=== PATIENT | male | born 1985 | race Hispanic/Latino ===

== ENCOUNTER 2018-04-26 22:19 | Emergency (ER) | payer SELFPAY ==
[2018-04-26 23:11] LABS: Absolute Lymphocytes (CBC) 1.8 K/uL (0.7-4.9); Absolute Monocytes 0.6 K/uL (0.1-1.3); Absolute Neutrophil 9.1 K/uL (1.8-8.0); Basophils % 0.2 % (0-1.3); Eosinophils % 0.2 % (0-4.4); Hematocrit 43.1 % (39.6-49.0); Lymphocytes % 15.5 % (15.3-44.8); Monocytes % 4.9 % (3.3-12.3); RBC Red Blood Cell Count 4.61 M/uL (4.33-5.43)
[2018-04-26 23:21] LABS: ALT/SGPT 19 U/L (12-78); AST/SGOT 14 U/L (15-37); Albumin 4.3 g/dL (3.4-5.0); Alkaline Phosphatase 76 U/L (45-117); BUN Blood Urea Nitrogen 14 mg/dL (7-18); Bicarbonate 28 mmol/L (21-32); Bilirubin Direct 0.1 mg/dL (0-0.2); Bilirubin Total 0.3 mg/dL (0.2-1.0); Glucose Level 121 mg/dL (74-106); Lipase 66 U/L (73-393); Potassium 3.4 mmol/L (3.5-5.1); Protein, Total 7.9 g/dL (6.4-8.2); Sodium Level 142 mmol/L (136-145)
[2018-04-26] MEDS ORDERED: FAMOTIDINE 20 MG/2 ML VIAL IV ONE (23:30)
[2018-04-26] MEDS ORDERED: MORPHINE 2 MG/ML SYR ONE (23:30)
[2018-04-26] MEDS ORDERED: NA CHLORIDE 0.9% 1,000 ML ONE (23:30)
[2018-04-26] MEDS ORDERED: ONDANSETRON 4 MG/2 ML VIAL ONE (23:30)
[2018-04-27] MEDS ORDERED: MORPHINE 2 MG/ML SYR ONE (00:23)
--- NOTE | 2018-04-27 02:05 | ER ---
Nurse's Notes [facility] Name: Allan Hudson Age: 32 yrs Sex: Male : 1985 Arrival Date: 04/26/2018 Time: 22:21 Bed 2 Private MD: Diagnosis: Nausea and vomiting;Diarrhea, unspecified Presentation: 04/26 22:25 Presenting complaint: EMS states: Called for patient having severe nausea, vomiting, lp1 diarrhea immediately after eating [employer]; Vomited x 3, states feeling numbness to left hand and arm; EMS states HR of 36 on arrival, given Atropine, HR to 60; Per EMS, patient diaphoretic; On arrival to ER, patient complaint of feeling cold, thrashing in bed related to abdominal pain. 22:30 Transition of care: patient was not received from another setting of care. Onset of lp1 symptoms was April 26, 2018 at 21:00. Risk Assessment: Do you want to hurt yourself or someone else? Patient reports no desire to harm self or others. Initial Sepsis Screen: Does the patient meet any 2 criteria? No. Patient's initial sepsis screen is negative. Does the patient have a suspected source of infection? No. Patient's initial sepsis screen is negative. Care prior to arrival: Medication(s) given: Normal saline infusion, 500 mL, 0.3 Atropine IV IV initiated. 18 GA, in the left antecubital area, Glucose check: 103. 22:30 Method Of Arrival: EMS: [facility] 1 22:30 Acuity: ANMOL 2 lp1 Historical: - Allergies: 22:36 Bactrim; lp1 - Home Meds: 22:36 None [Active]; lp1 - PMHx: 22:36 Asthma; lp1 - PSHx: 22:36 None; lp1 - Immunization history:: Adult Immunizations unknown. - Ebola Screening: : No symptoms or risks identified at this time. Screenin:36 Abuse screen: Denies threats or abuse. Denies injuries from another. Nutritional lp1 screening: No deficits noted. Tuberculosis screening: No symptoms or risk factors identified. Fall Risk Total Leggett Fall Scale indicates High Risk Score (45 or more points). Fall prevention measures have been instituted. Side Rails Up X 2 As available patient and family educated on Fall Prevention Program and Strategies. Assessment: 22:40 General: Appears in no apparent distress. uncomfortable, slender, Behavior is aa1 cooperative, appropriate for age, restless. Pain: Complains of pain in abdomen Pain currently is 10 out of 10 on a pain scale. Pain began suddenly. Pain: Is continuous. Neuro: Level of Consciousness is awake, alert, obeys commands, Oriented to person, place, time, situation, Moves all extremities. Full function Speech is normal. Cardiovascular: Denies chest pain, lightheadedness, palpitations, shortness of breath, Heart tones S1 S2 present Rhythm is regular. Respiratory: Airway is patent Respiratory effort is even, unlabored, Respiratory pattern is regular, symmetrical. GI: Abdomen is flat, Abd is soft X 4 quads Reports lower abdominal pain, upper abdominal pain, nausea, vomiting. : No signs and/or symptoms were reported regarding the genitourinary system. EENT: No signs and/or symptoms were reported regarding the EENT system. Derm: Skin is intact, is healthy with good turgor, Skin is pink, warm \T\ dry. Musculoskeletal: Circulation, motion, and sensation intact. Capillary refill < 3 seconds. 23:59 Reassessment: Patient appears in no apparent distress at this time. Patient and/or aa1 family updated on plan of care and expected duration. Pain level reassessed. Patient is alert, oriented x 3, equal unlabored respirations, skin warm/dry/pink. Awaiting CT scan. 04/27 00:10 Reassessment: Pt reports pain still 10/10; provider notified. aa1 01:54 Reassessment: Patient appears in no apparent distress at this time. Patient and/or aa1 family updated on plan of care and expected duration. Pain level reassessed. Patient is alert, oriented x 3, equal unlabored respirations, skin warm/dry/pink. Pt reports pain improved after second dose of medication. Awaiting CT results. 02:18 Reassessment: Patient appears in no apparent distress at this time. Patient is alert, aa1 oriented x 3, equal unlabored respirations, skin warm/dry/pink. Discussed d/c \T\ f/u instructions with pt; denies questions or concerns at this time. Amb to lobby with steady gait. Patient states feeling better. Vital Signs: 04/26 22:36 BP 138 / 84; Pulse 56; Resp 15; Temp 97.4(O); Pulse Ox 100% on R/A; Weight 74.84 kg; lp1 Height 5 ft. 10 in. (177.80 cm); Pain 10/10; 23:15 BP 111 / 63; Pulse 43; Resp 16; Pulse Ox 100% on R/A; aa1 23:59 BP 120 / 76; Pulse 47; Resp 18; Pulse Ox 100% on R/A; aa1 04/27 00:18 BP 124 / 66; Pulse 46; Resp 16; Pulse Ox 100% on R/A; Pain 10/10; aa1 01:54 BP 109 / 59; Pulse 52; Resp 16; Temp 97.6; Pulse Ox 100% on R/A; Pain 6/10; aa1 04/26 22:36 Body Mass Index 23.67 (74.84 kg, 177.80 cm) lp1 ED Course: 04/26 22:21 Patient arrived in ED. ds1 22:24 Toemr Felix PA is PHCP. cp 22:24 Tomer Beltre MD is Attending Physician. cp 22:32 Radha Zelaya RN is Primary Nurse. aa1 22:33 Patient has correct armband on for positive identification. Placed in gown. Bed in low aa1 position. Call light in reach. alarm security or surveillance monitor on. Pulse ox on. NIBP on. 22:33 Initial lab(s) drawn, by me, sent to lab. Maintain EMS IV. Dressing intact. Good blood aa1 return noted. Site clean \T\ dry. Gauge \T\ site: 18g LAC. 22:35 Triage completed. lp1 22:37 Arm band placed on left wrist. lp1 22:50 Radiology exam delayed due to lab results not completed at this time. (BUN/Creatinine). vm2 04/27 00:[address] via stretcher. kw1 00:53 CT completed. Patient tolerated procedure well. Patient moved back from CT. kw1 01:02 CT Abd/Pelvis - W/Contrast: give oral contrast In Process Unspecified. EDMS 02:18 No provider procedures requiring assistance completed. IV discontinued, intact, aa1 bleeding controlled, No redness/swelling at site. Pressure dressing applied. Administered Medications: 04/26 23:20 Drug: NS 0.9% 1000 ml Route: IV; Rate: 1 bolus; Site: left antecubital; aa1 04/27 01:48 Follow up: IV Status: Completed infusion; IV Intake: 1000ml aa1 04/26 23:20 Drug: Pepcid 20 mg Route: IVP; Site: left antecubital; aa1 04/27 00:02 Follow up: Response: No adverse reaction; No change in condition aa1 04/26 23:21 Drug: Zofran 4 mg Route: IVP; Site: left antecubital; aa1 04/27 01:47 Follow up: Response: No adverse reaction; Nausea is decreased aa1 04/26 23:23 Drug: morphine 2 mg Route: IVP; Site: left antecubital; aa1 04/27 00:02 Follow up: Response: No adverse reaction; Pain is unchanged, physician notified aa1 00:18 Drug: morphine 2 mg Route: IVP; Site: left antecubital; aa1 01:47 Follow up: Response: No adverse reaction; Pain is decreased aa1 01:31 CANCELLED (Physician Discretion): NS 0.9% 1000 ml IV at 125 ml/hr continuous cp 01:47 Drug: NS 0.9% 1000 ml Route: IV; Rate: 1 bolus; Site: left antecubital; aa1 02:17 Follow up: IV Status: Completed infusion aa1 Intake: 01:48 IV: 1000ml; Total: 1000ml. aa1 Outcome: 02:04 Discharge ordered by MD. cp 02:18 Discharged to home ambulatory. aa1 02:18 Condition: good 02:18 Discharge instructions given to patient, Instructed on discharge instructions, follow up and referral plans. medication usage, Demonstrated understanding of instructions, follow-up care, medications, Prescriptions given X 3. 02:20 Patient left the ED. aa1 Signatures: Dispatcher [employer] EDMS Radha Zelaya RN RN aa1 Suzette Cox dsVilma Saab RN RN lp1 Tomer Felix PA PA cp McGuire, Victoria vm2 Maxine Velazquez kw1 Corrections: (The following items were deleted from the chart) 04/26 22:35 22:25 Presenting complaint: EMS states: Called for lp1 lp1
--- NOTE | 2018-04-27 02:05 | EDPHYS ---
Physician Documentation [facility] Name: Allan Hudson Age: 32 yrs Sex: Male : 1985 Arrival Date: 04/26/2018 Time: 22:21 Bed 2 Private MD: ED Physician Tomer Beltre HPI: 04/26 22:45 This 32 yrs old Male presents to ER via EMS with complaints of cp Nausea/Vomiting/Diarrhea. 22:45 Onset: The symptoms/episode began/occurred suddenly, just prior to arrival. cp 22:45 The patient presents to the emergency department with nausea, that is severe, vomiting, cp that is continuous, diarrhea, that is continuous. 22:45 Possible causes: bad food exposure. cp 22:45 Associated signs and symptoms: Pertinent negatives: fever, GI bleeding. Patient reports cp symptoms started shortly after eating [employer]. Historical: - Allergies: 22:36 Bactrim; lp1 - Home Meds: 22:36 None [Active]; lp1 - PMHx: 22:36 Asthma; lp1 - PSHx: 22:36 None; lp1 - Immunization history:: Adult Immunizations unknown. - Ebola Screening: : No symptoms or risks identified at this time. ROS: 22:50 Constitutional: Positive for poor PO intake, Negative for body aches, chills, fever. cp 22:50 Eyes: Negative for injury, pain, redness, and discharge. cp 22:50 ENT: Negative for drainage from ear(s), ear pain, sore throat, difficulty swallowing, difficulty handling secretions. 22:50 Cardiovascular: Negative for chest pain. 22:50 Respiratory: Negative for cough, shortness of breath, wheezing. 22:50 Abdomen/GI: Positive for abdominal pain, nausea, vomiting, and diarrhea, Negative for constipation, hematemesis, black/tarry stool, rectal bleeding. 22:50 Back: Negative for pain at rest, pain with movement, radiated pain. 22:50 : Negative for urinary symptoms, testicular pain 22:50 Skin: Negative for cellulitis, rash. 22:50 Neuro: Negative for altered mental status, headache, weakness. 22:50 All other systems are negative. Exam: 22:35 ECG was reviewed by the Attending Physician. cp 23:00 Constitutional: The patient appears alert, awake, non-diaphoretic, non-toxic, well cp developed, well nourished, uncomfortable. 23:00 Head/Face: Normocephalic, atraumatic. cp 23:00 Eyes: Periorbital structures: appear normal, Conjunctiva: normal, no exudate, no injection, Sclera: no appreciated abnormality, Lids and lashes: appear normal, bilaterally. 23:00 ENT: External ear(s): are unremarkable, Nose: is normal, Mouth: Lips: moist, Oral mucosa: moist, Posterior pharynx: Airway: no evidence of obstruction, patent. 23:00 Chest/axilla: Inspection: normal, Palpation: is normal, no crepitus, no tenderness. 23:00 Cardiovascular: Rate: bradycardic, Rhythm: regular, Heart sounds: murmur, not appreciated. 23:00 Respiratory: the patient does not display signs of respiratory distress, Respirations: normal, no use of accessory muscles, no retractions, no splinting, no tachypnea, labored breathing, is not present, Breath sounds: are clear throughout, no decreased breath sounds, no stridor, no wheezing. 23:00 Abdomen/GI: Inspection: abdomen appears normal, Bowel sounds: active, all quadrants, Palpation: soft, in all quadrants, severe abdominal tenderness, in all quadrants, rebound tenderness, is not appreciated, voluntary guarding, is elicited in all quadrants. 23:00 Skin: cellulitis, is not appreciated, no rash present. 23:00 Neuro: Orientation: to person, place \T\ time. Mentation: is normal, Cerebellar function: is grossly normal, Motor: moves all fours, strength is normal, Sensation: is normal. Vital Signs: 22:36 BP 138 / 84; Pulse 56; Resp 15; Temp 97.4(O); Pulse Ox 100% on R/A; Weight 74.84 kg; lp1 Height 5 ft. 10 in. (177.80 cm); Pain 10/10; 23:15 BP 111 / 63; Pulse 43; Resp 16; Pulse Ox 100% on R/A; aa1 23:59 BP 120 / 76; Pulse 47; Resp 18; Pulse Ox 100% on R/A; aa1 03/05 00:18 BP 124 / 66; Pulse 46; Resp 16; Pulse Ox 100% on R/A; Pain 10/10; aa1 01:54 BP 109 / 59; Pulse 52; Resp 16; Temp 97.6; Pulse Ox 100% on R/A; Pain 6/10; aa1 04/26 22:36 Body Mass Index 23.67 (74.84 kg, 177.80 cm) lp1 MDM: 04/26 22:25 Patient medically screened. cp 04/27 00:00 Differential diagnosis: gastritis, cholecystitis, pancreatitis, appendicitis, cp diverticulitis, viral gastroenteritis, gastroenteritis, colitis. 02:02 Data reviewed: vital signs, nurses notes, lab test result(s), EKG, radiologic studies, cp plain films, I have discussed the patient's presentation/case with the attending Emergency Department Physician; and as a result, I will discharge patient. Test interpretation: by ED physician or midlevel provider: ECG. 02:03 Response to treatment: the patient's symptoms have markedly improved after treatment, cp and as a result, I will discharge patient. 02:03 Special discussion: Based on the patient's Hx, exam, and Dx evaluation, there is no cp indication for emergent surgery or inpatient Tx. It is understood by the patient/guardian that if the Sx's persist or worsen they need to return immediately for re-evaluation. 04/26 22:33 Order name: Basic Metabolic Panel; Complete Time: 23:32 aa04/26 22:33 Order name: CBC with Diff; Complete Time: 23:32 04/26 22:33 Order name: Creatinine for Radiology; Complete Time: 23:32 aa04/26 22:33 Order name: Hepatic Function; Complete Time: 23:32 aa04/26 22:33 Order name: Lipase; Complete Time: 23:32 aa04/26 22:48 Order name: CT Abd/Pelvis - W/Contrast: give oral contrast cp 04/26 22:33 Order name: EKG; Complete Time: 22:33 aa04/26 22:33 Order name: IV Saline Lock; Complete Time: 22:33 aa04/26 22:33 Order name: Labs collected and sent; Complete Time: 22:33 aa04/26 22:33 Order name: EKG - Nurse/Tech; Complete Time: 22:33 aa04/27 01:29 Order name: PO challenge cp EC/04 22:35 Rate is 47 beats/min. Rhythm is regular. WA interval is normal. QRS interval is cp prolonged at 110 msec. QT interval is normal. Interpreted by me. Reviewed by me. Administered Medications: 23:20 Drug: NS 0.9% 1000 ml Route: IV; Rate: 1 bolus; Site: left antecubital; aa1 04/27 01:48 Follow up: IV Status: Completed infusion; IV Intake: 1000ml aa1 04/26 23:20 Drug: Pepcid 20 mg Route: IVP; Site: left antecubital; aa1 04/27 00:02 Follow up: Response: No adverse reaction; No change in condition aa1 04/26 23:21 Drug: Zofran 4 mg Route: IVP; Site: left antecubital; aa1 04/27 01:47 Follow up: Response: No adverse reaction; Nausea is decreased aa1 04/26 23:23 Drug: morphine 2 mg Route: IVP; Site: left antecubital; aa1 04/27 00:02 Follow up: Response: No adverse reaction; Pain is unchanged, physician notified aa1 00:18 Drug: morphine 2 mg Route: IVP; Site: left antecubital; aa1 01:47 Follow up: Response: No adverse reaction; Pain is decreased aa1 01:31 CANCELLED (Physician Discretion): NS 0.9% 1000 ml IV at 125 ml/hr continuous cp 01:47 Drug: NS 0.9% 1000 ml Route: IV; Rate: 1 bolus; Site: left antecubital; aa1 02:17 Follow up: IV Status: Completed infusion aa1 Disposition: 04/27/18 02:04 Discharged to Home. Impression: Nausea and vomiting, Diarrhea, unspecified. - Condition is Stable. - Discharge Instructions: Food Choices to Help Relieve Diarrhea, Adult, Diarrhea, Adult, Nausea and Vomiting, Adult. - Prescriptions for Bentyl 20 mg Oral Tablet - take 1 tablet by ORAL route every 6 hours As needed; 30 tablet. Phenergan 25 mg Rectal Suppository - insert 1 suppository by RECTAL route every 6 hours As needed; 12 suppository. promethazine 25 mg Oral Tablet - take 1 tablet by ORAL route every 6 hours As needed; 20 tablet. - Medication Reconciliation Form, Thank You Letter, Antibiotic Education, Prescription Opioid Use form. - Work release form (04/27/18 16:24). bd - Follow up: Emergency Department; When: As needed; Reason: Worsening of condition. - Problem is new. - Symptoms have improved. Addendum: 04/28/2018 11:09 Co-signature as Attending Physician, Tomer Beltre MD I agree with the assessment and c bobo plan of care. Signatures: Dispatcher [employer] EDMS Radha Zelaya RN RN aa1 Tomer Beltre MD MD cha Pena, Laura RN RN lp1 Tomer Felix PA PA cp Dirrim, Barbara bd Corrections: (The following items were deleted from the chart) 04/27 01:31 01:30 NS 0.9% 1000 ml IV at 125 ml/hr continuous ordered. cp cp 02:20 02:04 04/27/2018 02:04 Discharged to Home. Impression: Nausea and vomiting; Diarrhea, aa1 unspecified. Condition is Stable. Forms are Medication Reconciliation Form, Thank You Letter, Antibiotic Education, Prescription Opioid Use. Follow up: Emergency Department; When: As needed; Reason: Worsening of condition. Problem is new. Symptoms have improved. cp 04/29 99:19 04/26 22:45 The patient presents to the emergency department with nausea, that is cp severe, vomiting, that is continuous, abdominal pain, cp 04/28 00:44 04/26 22:00 Constitutional: Positive for poor PO intake, Negative for fever, cp cp 04/28 00:44 04/26 22:00 Eyes: Negative for injury, pain, redness, and discharge, cp cp 04/28 00:04/26 22:00 ENT: Negative for drainage from ear(s), ear pain, sore throat, difficulty cp swallowing, difficulty handling secretions, cp 04/28 00:44 04/26 22:00 Cardiovascular: Negative for chest pain, palpitations, cp cp 04/28 00:44 04/26 22:00 Respiratory: Negative for cough, shortness of breath, wheezing, cp cp 04/28 00:44 04/26 22:00 Abdomen/GI: Positive for abdominal pain, nausea, vomiting, diarrhea, cp Negative for constipation, hematemesis, black/tarry stool, rectal bleeding, cp 04/28 00:44 04/26 22:00 Back: Negative for pain at rest, pain with movement, radiated pain, cp cp 04/28 22:00 : Negative for urinary symptoms, testicular pain cp cp 04/28 22:00 Skin: Negative for cellulitis, rash, cp cp 04/28 22:00 Neuro: Negative for altered mental status, headache, syncope, weakness, cp cp 04/28 22:00 All other systems are negative, cp cp
[2018-04-27 02:26] VITALS: O2SAT 100
[2018-04-27 02:33] VITALS: BP 109/59; TEMP 97.6
--- NOTE | 2018-04-27 10:25 | RAD REPORT ---
EXAM DESCRIPTION: CT - Abdomen Pelvis W Contrast - 04/27/2018 1:54 am CLINICAL HISTORY: The patient is 32 years old and is Male; ABD PAIN TECHNIQUE: Axial computed tomography images of the abdomen and pelvis with intravenous contrast. S agittal and coronal reformatted images were created and reviewed. This CT exam was performed using one or more of the following dose reduction techniques: automated exposure control, adjustment of t he mA and/or kV according to patient size, and/or use of iterative reconstruction technique. COMPARISON: CT abdomen and pelvis with IV contrast dated July 17, 2015. FINDINGS: LUNG BASES: Lung bases are clear. HEART: Visualized heart is within normal limits. ABDOMEN: LIVER: Unremarkable. No mass. GALLBLADDER AND BILE DUCTS: Unremarkable. No calcified stones. No ductal dilation. PANCREAS: Unremarkable. No mass. No ductal dilation. SPLEEN: Unremarkable. No splenomegaly. ADRENALS: Unremarkable. No mass. KIDNEYS AND URETERS: Unremarkable. No solid mass. No hydronephrosis. STOMACH AND BOWEL: Enteric contrast is seen throughout the small bowel and proximal large bowel. N o obstruction or perforation. No mucosal thickening. PELVIS: APPENDIX: No findings to suggest acute appendicitis. BLADDER: Unremarkable. No mass. REPRODUCTIVE: Unremarkable as visualized. ABDOMEN and PELVIS: INTRAPERITONEAL SPACE: Unremarkable. No free air. No significant fluid collection. BONES/JOINTS: Levoscoliosis of the thoracolumbar spine. No acute fracture. No dislocation. SOFT TISSUES: Unremarkable. VASCULATURE: Unremarkable. No abdominal aortic aneurysm. LYMPH NODES: Unremarkable. No enlarged lymph nodes. OTHER FINDINGS: Right-sided additional lumbosacral anatomy. IMPRESSION: No acute abdominal or pelvic abnormality. Electronically signed by: Rafy Hall DO 04/27/2018 1:10 AM [employer] Due to temporary technical issues with the PACS/Fluency reporting system, reports are being signed by the in house radiologist as a courtesy to ensure prompt reporting. The interpreting radiologist is f ully responsible for the content of the report.
--- NOTE | 2018-04-27 10:31 | EKG ---
Test Date: 2018-04-26 Test Time: 22:26:57 Account Support Rep: CHRIS MEASUREMENT RESULTS: Intervals: Rate: 47 MA: 144 QRSD: 110 QT: 486 QTc: 430 [place]: P: 54 MA: 144 QRS: 29 T: 31 INTERPRETIVE STATEMENTS: Marked sinus bradycardia Abnormal ECG Compared to ECG 07/17/2015 09:57:14 No significant changes Electronically Signed On 04-27-18 10:29:18 LENS CEMENTER by Tomas Trevino
== END 2018-04-27 02:20 | disposition home or self-care (01) ==
LOC: ER 22:19
DX: R19.7 Diarrhea, unspecified (principal); Z88.1 Allergy status to other antibiotic agents
CPT/HCPCS: 36415; 74177; 80048; 80076; 83690; 85025; 93005; 96361; 96374; 96375; 99285; J2270; J2405; J7030; Q9967

== ENCOUNTER 2018-05-01 14:35 | Emergency (ER) | payer SELFPAY ==
[2018-05-01 15:34] LABS: Absolute Monocytes 0.9 K/uL (0.1-1.3); Absolute Neutrophil 10.9 K/uL (1.8-8.0); Basophils % 0.4 % (0-1.3); Eosinophils % 0.5 % (0-4.4); Hematocrit 44.2 % (39.6-49.0); Lymphocytes % 14.6 % (15.3-44.8); MPV 8.1 fL (7.6-11.3); Monocytes % 6.7 % (3.3-12.3)
[2018-05-01] MEDS ORDERED: ONDANSETRON 4 MG/2 ML VIAL ONE (15:44)
[2018-05-01] MEDS ORDERED: KETOROLAC 30 MG/ML INJ ONE (15:44)
[2018-05-01] MEDS ORDERED: NA CHLORIDE 0.9% 1,000 ML ONE (15:45)
[2018-05-01 15:52] LABS: ALT/SGPT 24 U/L (12-78); AST/SGOT 32 U/L (15-37); Albumin 4.2 g/dL (3.4-5.0); Alkaline Phosphatase 77 U/L (45-117); BUN Blood Urea Nitrogen 13 mg/dL (7-18); Bicarbonate 29 mmol/L (21-32); Bilirubin Direct < 0.1 mg/dL (0-0.2); Bilirubin Total 0.4 mg/dL (0.2-1.0); Glucose Level 119 mg/dL (74-106); Lipase 67 U/L (73-393); Potassium 3.4 mmol/L (3.5-5.1); Sodium Level 143 mmol/L (136-145)
[2018-05-01] MEDS ORDERED: PROMETHAZINE 25 MG/ML VIAL ONE (16:23)
[2018-05-01] MEDS ORDERED: DICYCLOMINE HCL 20 MG/2 ML AMP IM ONE (16:24)
--- NOTE | 2018-05-01 16:34 | ER ---
Nurse's Notes [facility] Name: Allan Hudson Age: 32 yrs Sex: Male : 1985 Arrival Date: 05/01/2018 Time: 14:37 Bed 24 Private MD: Diagnosis: Nausea and vomiting;Generalized abdominal pain;Diarrhea, unspecified Presentation: 05/01 14:57 Presenting complaint: Patient states: abd pain, N/V/D that began 3 days ago. Is getting ss worse. Transition of care: patient was not received from another setting of care. Onset of symptoms was April 28, 2018. Risk Assessment: Do you want to hurt yourself or someone else? Patient reports no desire to harm self or others. Care prior to arrival: None. 14:57 Method Of Arrival: Ambulatory ss 14:57 Acuity: ANMOL 3 ss Historical: - Allergies: 14:58 Bactrim; ss - PMHx: 14:58 Asthma; ss - PSHx: 14:58 None; ss - Immunization history:: Adult Immunizations up to date. - Social history:: Smoking status: Patient/guardian denies using tobacco. - Ebola Screening: : Patient denies exposure to infectious person Patient denies travel to an Ebola-affected area in the 21 days before illness onset. Screenin:42 Abuse screen: Denies threats or abuse. Nutritional screening: No deficits noted. la1 Tuberculosis screening: No symptoms or risk factors identified. Fall Risk None identified. Assessment: 15:41 General: Appears in no apparent distress. Behavior is calm, cooperative. Pain: la1 Complains of pain in abdomen Pain currently is 6 out of 10 on a pain scale. Neuro: Level of Consciousness is awake, alert, obeys commands, Oriented to person, place, time, situation. Cardiovascular: Capillary refill < 3 seconds Patient's skin is warm and dry. Respiratory: Airway is patent Respiratory effort is even, unlabored, Respiratory pattern is regular, symmetrical, Breath sounds are clear bilaterally. GI: Abdomen is round non-distended, Bowel sounds present X 4 quads. Abd is soft X 4 quads Abdomen is tender to palpation X 4 quads. Reports nausea, vomiting, Patient currently denies diarrhea. : No signs and/or symptoms were reported regarding the genitourinary system. 16:27 Reassessment: Pt rolling around on stretcher, tugging at IV site stating he is la1 nauseous. Pt mother visited room and Pt yelled at her stating "rub my belly, I need some love", mother left room and stated to call her when he needs a ride. Pt states he was unable to fill RX from previous visit for financial reasons, pt informed phenergan is very cheap and pt stated he has the means to obtain the medication. Vital Signs: 14:58 Resp 26; Weight 72.57 kg; Height 5 ft. 10 in. (177.80 cm); Pain 7/10; ss 15:00 BP 164 / 99; Pulse 56; Pulse Ox 99% on R/A; ss 17:11 BP 152 / 95; Pulse 58; Resp 20; Temp 98.5(O); Pulse Ox 100% ; lt1 14:58 Body Mass Index 22.96 (72.57 kg, 177.80 cm) ss ED Course: 14:37 Patient arrived in ED. as 14:58 Triage completed. ss 14:58 Arm band placed on left wrist. ss 15:01 Snehal Damon FNP-C is PHCP. kb 15:01 Tomer Beltre MD is Attending Physician. kb 15:23 Initial lab(s) drawn, by me, sent to lab. Inserted saline lock: 20 gauge in right lt1 antecubital area, using aseptic technique. 15:41 Satya Morales, RN is Primary Nurse. la1 15:43 Patient has correct armband on for positive identification. Bed in low position. Call la1 light in reach. Side rails up X 1. 17:47 No provider procedures requiring assistance completed. IV discontinued, intact, la1 bleeding controlled, No redness/swelling at site. Pressure dressing applied. Administered Medications: 15:43 Drug: NS 0.9% 1000 ml Route: IV; Rate: 1000 ml; Site: right antecubital; la1 16:25 Follow up: IV Status: Completed infusion la1 15:43 Drug: Zofran 4 mg Route: IVP; Site: right antecubital; la1 16:25 Follow up: Response: No adverse reaction la1 15:43 Drug: TORadol 30 mg Route: IVP; Site: right antecubital; la1 16:26 Follow up: Response: No adverse reaction; Pain is decreased la1 16:25 Drug: Phenergan 12.5 mg {Note: Given IM to left gluteus per Annika COORDINATE MEASURING MACHINE TECHNICIAN.} Route: IVP; la1 Site: Other; 17:06 Follow up: Response: No adverse reaction la1 16:26 Drug: Bentyl 20 mg {Note: Given IM per snehal COORDINATE MEASURING MACHINE TECHNICIAN to right gluteus.} Route: PO; la1 17:07 Follow up: Response: No adverse reaction la1 17:15 Drug: Potassium Chloride 20 mEq Route: PO; la1 17:15 Follow up: Response: No adverse reaction la1 Outcome: 16:33 Discharge ordered by MD. keen 17:48 Discharged to home ambulatory. la1 17:48 Condition: stable 17:48 Discharge instructions given to patient, Instructed on discharge instructions, follow up and referral plans. medication usage, Demonstrated understanding of instructions, follow-up care, medications. 17:48 Patient left the ED. la1 Signatures: Snehal Damon, COORDINATE MEASURING MACHINE TECHNICIAN-C COORDINATE MEASURING MACHINE TECHNICIAN-Ckb Ros Butterfield Shelby, RN RN Satya Morales RN RN la1 Izabela Burgos [facility]
--- NOTE | 2018-05-01 16:34 | EDPHYS ---
Physician Documentation [facility] Name: Allan Hudson Age: 32 yrs Sex: Male : 1985 Arrival Date: 05/01/2018 Time: 14:37 Bed 24 Private MD: PAULINA Physician Tomer Beltre HPI: 05/01 15:27 This 32 yrs old Male presents to ER via Ambulatory with complaints of Vomiting.kb 15:27 The patient presents to the emergency department with nausea, vomiting, diarrhea, kb abdominal pain. Onset: The symptoms/episode began/occurred 3 day(s) ago. Possible causes: bad food exposure. The symptoms are aggravated by nothing. The symptoms are alleviated by nothing. Associated signs and symptoms: Pertinent positives: abdominal pain, diarrhea, nausea, vomiting. Severity of symptoms: At their worst the symptoms were moderate in the emergency department the symptoms are unchanged. The patient has not experienced similar symptoms in the past. The patient has not recently seen a physician. 15:36 Pt reports n/v/d and abd pain that started three days ago. Was seen here at onset of kb symptoms and diagnosed with food poisoning, symptoms have not gone away. Historical: - Allergies: 14:58 Bactrim; ss - PMHx: 14:58 Asthma; ss - PSHx: 14:58 None; ss - Immunization history:: Adult Immunizations up to date. - Social history:: Smoking status: Patient/guardian denies using tobacco. - Ebola Screening: : Patient denies exposure to infectious person Patient denies travel to an Ebola-affected area in the 21 days before illness onset. ROS: 15:27 Constitutional: Negative for fever, chills, and weight loss, Neck: Negative for injury, kb pain, and swelling, Cardiovascular: Negative for chest pain, palpitations, and edema, Respiratory: Negative for shortness of breath, cough, wheezing, and pleuritic chest pain, Back: Negative for injury and pain, MS/Extremity: Negative for injury and deformity, Skin: Negative for injury, rash, and discoloration, Neuro: Negative for headache, weakness, numbness, tingling, and seizure. 15:27 Abdomen/GI: Positive for abdominal pain, nausea, vomiting, and diarrhea, Negative for constipation, abdominal cramps, abdominal distension, anorexia. Exam: 15:28 Head/Face: Normocephalic, atraumatic. ENT: Nares patent. No nasal discharge, no kb septal abnormalities noted. Tympanic membranes are normal and external auditory canals are clear. Oropharynx with no redness, swelling, or masses, exudates, or evidence of obstruction, uvula midline. Mucous membranes moist. Neck: Trachea midline, no thyromegaly or masses palpated, and no cervical lymphadenopathy. Supple, full range of motion without nuchal rigidity, or vertebral point tenderness. No Meningismus. Chest/axilla: Normal chest wall appearance and motion. Nontender with no deformity. No lesions are appreciated. Cardiovascular: Regular rate and rhythm with a normal S1 and S2. No gallops, murmurs, or rubs. Normal PMI, no JVD. No pulse deficits. Respiratory: Lungs have equal breath sounds bilaterally, clear to auscultation and percussion. No rales, rhonchi or wheezes noted. No increased work of breathing, no retractions or nasal flaring. Skin: Warm, dry with normal turgor. Normal color with no rashes, no lesions, and no evidence of cellulitis. MS/ Extremity: Pulses equal, no cyanosis. Neurovascular intact. Full, normal range of motion. Neuro: Awake and alert, GCS 15, oriented to person, place, time, and situation. Cranial nerves II-XII grossly intact. Motor strength 5/5 in all extremities. Sensory grossly intact. Cerebellar exam normal. Normal gait. 15:28 Constitutional: The patient appears alert, awake, uncomfortable. 15:28 Abdomen/GI: Inspection: abdomen appears normal, Bowel sounds: hyperactive, in all quadrants, Palpation: soft, in all quadrants, moderate abdominal tenderness, in all quadrants. Vital Signs: 14:58 Resp 26; Weight 72.57 kg; Height 5 ft. 10 in. (177.80 cm); Pain 7/10; ss 15:00 BP 164 / 99; Pulse 56; Pulse Ox 99% on R/A; ss 17:11 BP 152 / 95; Pulse 58; Resp 20; Temp 98.5(O); Pulse Ox 100% ; lt1 14:58 Body Mass Index 22.96 (72.57 kg, 177.80 cm) MDM: 15:01 Patient medically screened. kb 15:28 Data reviewed: vital signs, nurses notes. Data interpreted: Pulse oximetry: on room air kb is 99 %. Interpretation: normal. 16:14 ED course: CT scan reviewed from prior visit. No acute abnormalities. kb 16:32 Counseling: I had a detailed discussion with the patient and/or guardian regarding: the kb historical points, exam findings, and any diagnostic results supporting the discharge/admit diagnosis, lab results, the need for outpatient follow up, a family practitioner, to return to the emergency department if symptoms worsen or persist or if there are any questions or concerns that arise at home. 16:34 ED course: Pt instructed to fill prescriptions previously prescribed and take as kb directed. . 05/01 15:04 Order name: Basic Metabolic Panel; Complete Time: 15:56 kb 05/01 15:04 Order name: CBC with Diff; Complete Time: 15:36 kb 05/01 15:04 Order name: Hepatic Function; Complete Time: 15:56 kb 05/01 15:04 Order name: Lipase; Complete Time: 15:56 kb 05/01 15:04 Order name: IV Saline Lock; Complete Time: 15:24 kb 05/01 15:04 Order name: Labs collected and sent; Complete Time: 15:24 kb Administered Medications: 15:43 Drug: NS 0.9% 1000 ml Route: IV; Rate: 1000 ml; Site: right antecubital; la1 16:25 Follow up: IV Status: Completed infusion la1 15:43 Drug: Zofran 4 mg Route: IVP; Site: right antecubital; la1 16:25 Follow up: Response: No adverse reaction la1 15:43 Drug: TORadol 30 mg Route: IVP; Site: right antecubital; la1 16:26 Follow up: Response: No adverse reaction; Pain is decreased la1 16:25 Drug: Phenergan 12.5 mg {Note: Given IM to left gluteus per Annika FLASH OVEN OPERATOR.} Route: IVP; la1 Site: Other; 17:06 Follow up: Response: No adverse reaction la1 16:26 Drug: Bentyl 20 mg {Note: Given IM per snehal FLASH OVEN OPERATOR to right gluteus.} Route: PO; la1 17:07 Follow up: Response: No adverse reaction la1 17:15 Drug: Potassium Chloride 20 mEq Route: PO; la1 17:15 Follow up: Response: No adverse reaction la1 Disposition: 05/01/18 16:33 Discharged to Home. Impression: Nausea and vomiting, Generalized abdominal pain, Diarrhea, unspecified. - Condition is Stable. - Discharge Instructions: Food Choices to Help Relieve Diarrhea, Adult, Viral Gastroenteritis, Adult, [id number], Nausea and Vomiting, Adult, [id number]-[id number], Abdominal Pain, Adult, [id number], Diarrhea, Adult, [id number]. - Medication Reconciliation Form, Thank You Letter, Antibiotic Education, Prescription Opioid Use form. - Work release form (05/02/18 16:53). ms - Follow up: Emergency Department; When: As needed; Reason: Worsening of condition. Follow up: Private Physician; When: 2 - 3 days; Reason: Recheck today's complaints, Continuance of care, Re-evaluation by your physician. Addendum: 05/03/2018 09:29 Co-signature as Attending Physician, Tomer Beltre MD I agree with the assessment and c bobo plan of care. Signatures: Dispatcher [employer] EDMS Snehal Damon, FLASH OVEN OPERATOR-C FLASH OVEN OPERATOR-Ckb Tomer Beltre MD MD cha Smirch, Shelby RN RN ss Satya Morales RN RN la1 Nicole Moe ms Corrections: (The following items were deleted from the chart) 05/01 17:48 16:33 05/01/2018 16:33 Discharged to Home. Impression: Nausea and vomiting; Generalized la1 abdominal pain; Diarrhea, unspecified. Condition is Stable. Forms are Medication Reconciliation Form, Thank You Letter, Antibiotic Education, Prescription Opioid Use. Follow up: Emergency Department; When: As needed; Reason: Worsening of condition. Follow up: Private Physician; When: 2 - 3 days; Reason: Recheck today's complaints, Continuance of care, Re-evaluation by your physician. kb
[2018-05-01] MEDS ORDERED: POTASSIUM CL SA 10 MEQ TAB PO ONE (17:19)
[2018-05-01 18:28] VITALS: BP 152/95; TEMP 98.5; O2SAT 100
== END 2018-05-01 17:48 | disposition home or self-care (01) ==
LOC: ER 14:35
DX: R10.84 Generalized abdominal pain (principal); R19.7 Diarrhea, unspecified; Z88.1 Allergy status to other antibiotic agents
CPT/HCPCS: 36415; 80048; 80076; 83690; 85025; 99283; J0500; J2405; J2550; J7030

== ENCOUNTER 2022-01-15 15:40 | Emergency (ER) | payer OTHER ==
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
--- NOTE | 2022-01-15 16:52 | RAD REPORT ---
EXAM DESCRIPTION: RAD - Humerus Left - 01/15/2022 4:42 pm CLINICAL HISTORY: PAIN COMPARISON: No comparisons FINDINGS/IMPRESSION: No acute fracture. No malalignment. No significant focal degenerative changes.
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
[2022-01-15 17:38] VITALS: TEMP 98
[2022-01-15 17:39] VITALS: BP 127/77; O2SAT 99
== END 2022-01-15 17:32 | disposition home or self-care (01) ==
LOC: ER 15:40
DX: S09.90XA Unspecified injury of head, initial encounter (principal); M54.2 Cervicalgia; M25.512 Pain in left shoulder; F17.210 Nicotine dependence, cigarettes, uncomplicated; Z88.1 Allergy status to other antibiotic agents
CPT/HCPCS: 70450; 71250; 72125; 99283

== ENCOUNTER 2023-08-27 13:17 | Emergency (ER) | payer SELFPAY ==
--- OUTSIDE RECORDS SUMMARY | 2023-08-27 13:19 | XMS REPORT | Continuity of Care Document ---
Author Name Unknown Address [address] [facility] [address] th[address] Address [address] [facility] [address] [place] [address] Care Team Providers Care Prop Sawyer Name Role Phone LINDA HOLLAND Attending Clinician Unavailab le Encounters Start Date/Time End Date/Time Encounter Type Admission Type Attending Clinicians Care Facility Care Department Encounter ID Source 2022-06-30 00:00:00 2022-06-30 00:00:00 Outpatient LINDA HOLLAND [id number] Ammy Mason
[2023-08-27 13:59] LABS: Absolute Eosinophils 0.1 K/uL (0-0.5); Absolute Lymphocytes (CBC) 1.7 K/uL (0.7-4.9); Absolute Monocytes 0.5 K/uL (0.1-1.3); Absolute Neutrophil 4.1 K/uL (1.8-8.0); Basophils % 0.6 % (0-1.3); Eosinophils % 1.8 % (0-4.4); Hemoglobin 14.9 g/dL (13.6-17.9); Lymphocytes % 26.2 % (15.3-44.8); MCH 31.4 pg (27.0-35.0); MCHC 33.1 g/dL (32.0-36.0); MCV 94.8 fL (80-100); MPV 8.2 fL (7.6-11.3); Monocytes % 7.6 % (3.3-12.3); Neutrophils % 63.8 % (41.7-73.7); Platelets 219 thou/uL (152-406); RBC Red Blood Cell Count 4.74 M/uL (4.33-5.43); Red Cell Distribution Width 13.1 % (12.1-15.2)
[2023-08-27 14:07] LABS: PT Prothrombin Time 11.4 SECONDS (9.4-12.5); PTT, Activated Partial Thromb 33.8 SECONDS (24.3-36.9); Protime INR 1.04
[2023-08-27 14:24] LABS: ALT/SGPT 20 U/L (16-61); AST/SGOT 14 U/L (15-37); Albumin 4.2 g/dL (3.4-5.0); Albumin/Globulin Ratio 1.2 (1.1-1.8); Alkaline Phosphatase 74 U/L (45-117); Anion Gap 4.8 mEq/L (5.0-15.0); BUN Blood Urea Nitrogen 18 mg/dL (7-18); Bicarbonate 29 mEq/L (21-32); Bilirubin Total 0.6 mg/dL (0.2-1.0); Globulin 3.5 g/dL (2.3-3.5); Glomerular Filtration Rate 104 ml/min (=/>90); Glucose Level 95 mg/dL (74-106); Potassium 3.8 mEq/L (3.5-5.1); Protein, Total 7.7 g/dL (6.4-8.2); Sodium Level 140 mEq/L (136-145)
[2023-08-27 14:50] LABS: Bilirubin Direct < 0.2 mg/dL (0-0.2); Bilirubin Indirect, Calculated 0.4 mg/dL (0.2-0.8)
--- NOTE | 2023-08-27 15:53 | ER ---
Nurse's Notes [facility] Name: Allan Hudson Age: 37 yrs Sex: Male : 1985 Arrival Date: 08/27/2023 Time: 13:17 Bed 8 Private MD: Diagnosis: Encounter for possible overdose of unknown substance Presentation: 08/26 13:22 Chief complaint: Patient states: tried to overdose on Tylenol PM and cocaine in attempt al5 to hurt oneself. Took an estimate of 1 gm of cocaine about 20 minutes ago, and half of a bottle of Tylenol PM about 40 minutes ago. Pt c/o stomach and chest pain as well as SI. Coronavirus screen: At this time, the client does not indicate any symptoms associated with coronavirus-19. Ebola Screen: No symptoms or risks identified at this time. Initial Sepsis Screen: Does the patient meet any 2 criteria? No. Patient's initial sepsis screen is negative. Does the patient have a suspected source of infection? No. Patient's initial sepsis screen is negative. Risk Assessment: Do you want to hurt yourself or someone else? Patient reports desire/thoughts of hurting themselves or someone else. Provider notified. Onset of symptoms was August 27, 2023. Care prior to arrival: None. 13:22 Method Of Arrival: Law Enforcement: Emre GUADALUPE [facility] 13:22 Acuity: ANMOL 2 al5 Triage Assessment: 13:27 General: Appears in no apparent distress. unkempt, Behavior is calm, cooperative, al5 upset.. Pain: Complains of pain in chest and abdomen Pain currently is 7 out of 10 on a pain scale. Is continuous. EENT: No deficits noted. No signs and/or symptoms were reported regarding the EENT system. Neuro: Level of Consciousness is awake, alert, obeys commands, Oriented to person, place, time, situation, Speech is normal, Facial symmetry appears normal. Cardiovascular: Capillary refill < 3 seconds Patient's skin is warm and dry. Cardiovascular: Reports chest pain. Respiratory: No deficits noted. Airway is patent Trachea midline Respiratory effort is even, unlabored, Respiratory pattern is regular, symmetrical. GI: Abdomen is flat, non-distended, Reports lower abdominal pain, upper abdominal pain. : No deficits noted. No signs and/or symptoms were reported regarding the genitourinary system. Derm: No deficits noted. No signs and/or symptoms reported regarding the dermatologic system. Skin is intact, Skin is pink, warm \\T\\ dry. normal. Musculoskeletal: No deficits noted. No signs and/or symptoms reported regarding the musculoskeletal system. Historical: - Allergies: 13:27 Bactrim; al5 - PMHx: 13:27 Asthma; al5 - Immunization history:: Adult Immunizations up to date. - Infectious Disease History:: Denies. - Social history:: Smoking status: Patient reports the use of cigarette tobacco products, smokes one pack cigarettes per day. - Family history:: not pertinent. - Hospitalizations: : No recent hospitalization is reported. Screenin:30 [facility] ED Fall Risk Assessment (Adult) History of falling in the last 3 months, al5 including since admission No falls in past 3 months (0 pts) Confusion or Disorientation No (0 pts) Intoxicated or Sedated No (0 pts) Impaired Gait No (0 pts) Mobility Assist Device Used No (0 pt) Altered Elimination No (0 pt) Score/Fall Risk Level 0 - 2 = Low Risk Oriented to surroundings, Maintained a safe environment, Hourly rounding (assess needs \\T\\ fall precautionary measures) done. Abuse screen: Denies threats or abuse. Denies injuries from another. Nutritional screening: No deficits noted. Tuberculosis screening: No symptoms or risk factors identified. Assessment: 13:30 General: see triage note. al5 14:20 Reassessment: Patient appears in no apparent distress at this time. No changes from al5 previously documented assessment. Patient and/or family updated on plan of care and expected duration. Pain level reassessed. Patient is alert, oriented x 3, equal unlabored respirations, skin warm/dry/pink. 15:30 Reassessment: Patient appears in no apparent distress at this time. No changes from al5 previously documented assessment. Patient and/or family updated on plan of care and expected duration. Pain level reassessed. Patient is alert, oriented x 3, equal unlabored respirations, skin warm/dry/pink. 16:01 Reassessment: Patient appears in no apparent distress at this time. No changes from al5 previously documented assessment. Patient and/or family updated on plan of care and expected duration. Pain level reassessed. Patient is alert, oriented x 3, equal unlabored respirations, skin warm/dry/pink. 16:14 General: Upon discharging patient to law enforcement custody, patient started yelling cm10 and screaming, "I don't want to hurt anyone I just want to kill myself. Why won't you let me kill myself?" Buzz Bashir with [employer] Damon states that patient will be transferred to [facility] where MR will evaluate him and [facility] screener will assess patient. Patient left via wheelchair with [place] Damon [employer].. Vital Signs: 13:22 BP 127 / 89; Pulse 70; Resp 18; Temp 97.7(TE); Pulse Ox 94% on R/A; Weight 83.91 kg; al5 Height 5 ft. 9 in. ; Pain 7/10; 13:30 BP 128 / 87; Pulse 67; Resp 15; Pulse Ox 95% on R/A; al5 14:00 BP 118 / 82; Pulse 60; Resp 16; Pulse Ox 96% on R/A; al5 14:30 BP 101 / 70; Pulse 61; Resp 15; Pulse Ox 96% ; al5 15:00 BP 124 / 88; Pulse 58; Resp 17; Pulse Ox 95% on R/A; al5 15:30 BP 127 / 92; Pulse 57; Resp 17; Pulse Ox 96% on R/A; al5 13:22 Body Mass Index 27.32 (83.91 kg, 175.26 cm) al5 13:22 Pain Scale: Adult al5 ED Course: 13:21 Patient arrived in ED. rn 13:21 Agapito Whyte MD is Attending Physician. rn 13:22 Clarissa Baer, REED is Primary Nurse. al5 13:27 Triage completed. al5 13:30 Patient has correct armband on for positive identification. Bed in low position. Call al5 light in reach. Side rails up X 1. police with patient at bedside. 13:31 Arm band placed on right wrist. Patient placed in the treatment room, on a stretcher, al5 in view of staff members. 13:31 Provided Education on:. al5 13:31 No provider procedures requiring assistance completed. al5 13:48 Acetaminophen Sent. al5 13:48 Basic Metabolic Panel Sent. al5 13:48 CBC with Diff Sent. al5 13:48 ETOH Level Sent. al5 13:48 Hepatic Function Sent. al5 13:48 PT-INR Sent. al5 13:48 Ptt, Activated Sent. al5 13:48 Salicylate Sent. al5 13:48 Initial lab(s) drawn, by nm, sent to lab. EKG done, by ED staff, reviewed by Agapito Whyte MD. Inserted saline lock: 20 gauge in right antecubital area, using aseptic technique. Blood [facility]. [facility] For [facility], supportive care and use al5 Benzos as needed for agitation. Benadryl can cause [employer] depression, seizures, hallucinations, and QRS elongation. Repeat EKG in 6 hours and have on continuous monitoring. For acetaminophen, repeat an acetaminophen lab work 4 hours post ingestion (1630). If first level is at or above 200, treat. If below 200, recollect and if second level comes back above 150, treat. 16:15 IV discontinued, intact, bleeding controlled, No redness/swelling at site. Pressure al5 dressing applied. Administered Medications: No medications were administered Medication: 13:31 VIS not applicable for this client. al5 Outcome: 15:53 Discharge ordered by . rn 16:15 Discharged to Law Enforcement al5 16:15 Condition: stable 16:15 Discharge instructions given to police, Instructed on discharge instructions, follow up and referral plans. 16:16 Patient left the ED. al5 Signatures: Agapito Whyte MD MD rn Martinez, Clarissa, RN RN cm10 Clarissa Baer RN RN al5
--- NOTE | 2023-08-27 15:53 | EDPHYS ---
Physician Documentation [facility] Name: Allan Hudson Age: 37 yrs Sex: Male : 1985 Arrival Date: 08/27/2023 Time: 13:17 Bed 8 Private MD: ED Physician Agapito Whyte HPI: 08/26 13:26 This 37 yrs old Male presents to ER via Unassigned with complaints of overdose.rn 13:26 The patient presents to the emergency department with a possible overdose. Context: rn Method: the patient has a confirmed or suspected ingestion, Time: 1 hour(s) ago, the OD/poisoning occurred at outdoors. Severity of symptoms: At their worst the symptoms were mild in the emergency department the symptoms are unchanged. The patient has not experienced similar symptoms in the past. Patient reports ingestion of cocaine/Tylenol PM/Unisom about an hour prior to arrival. Patient was then caught shoplifting at [facility] per police and is in custody.. Historical: - Allergies: 13:27 Bactrim; al5 - PMHx: 13:27 Asthma; al5 - Immunization history:: Adult Immunizations up to date. - Infectious Disease History:: Denies. - Social history:: Smoking status: Patient reports the use of cigarette tobacco products, smokes one pack cigarettes per day. - Family history:: not pertinent. - Hospitalizations: : No recent hospitalization is reported. ROS: 13:26 Constitutional: Negative for fever, chills, and weight loss, ENT: Negative for injury, rn pain, and discharge, Neck: Negative for injury, pain, and swelling, Cardiovascular: Negative for chest pain, palpitations, and edema, Respiratory: Negative for shortness of breath, cough, wheezing, and pleuritic chest pain, Abdomen/GI: Negative for abdominal pain, nausea, vomiting, diarrhea, and constipation, Back: Negative for injury and pain, MS/Extremity: Negative for injury and deformity, Skin: Negative for injury, rash, and discoloration, Neuro: Negative for headache, weakness, numbness, tingling, and seizure, Exam: 13:26 Constitutional: This is a well developed, well nourished patient who is awake, alert, rn and in no acute distress. Head/Face: Normocephalic, atraumatic. Eyes: Pupils equal round and reactive to light, extra-ocular motions intact. ENT: Dry mucous membranes Cardiovascular: Regular rate and rhythm. No pulse deficits. Respiratory: No increased work of breathing, no retractions or nasal flaring. Abdomen/GI: Soft, non-tender MS/ Extremity: Pulses equal, no cyanosis. Neurovascular intact. Full, normal range of motion. Equal circumference. Neuro: Awake and alert, GCS 15, oriented to person, place, time, and situation. Cranial nerves II-XII grossly intact. Motor strength 5/5 in all extremities. Sensory grossly intact. Cerebellar exam normal. Normal gait. 13:59 ECG was reviewed by the Attending Physician. rn Vital Signs: 13:22 BP 127 / 89; Pulse 70; Resp 18; Temp 97.7(TE); Pulse Ox 94% on R/A; Weight 83.91 kg; al5 Height 5 ft. 9 in. ; Pain 7/10; 13:30 BP 128 / 87; Pulse 67; Resp 15; Pulse Ox 95% on R/A; al5 14:00 BP 118 / 82; Pulse 60; Resp 16; Pulse Ox 96% on R/A; al5 14:30 BP 101 / 70; Pulse 61; Resp 15; Pulse Ox 96% ; al5 15:00 BP 124 / 88; Pulse 58; Resp 17; Pulse Ox 95% on R/A; al5 15:30 BP 127 / 92; Pulse 57; Resp 17; Pulse Ox 96% on R/A; al5 13:22 Body Mass Index 27.32 (83.91 kg, 175.26 cm) al5 13:22 Pain Scale: Adult al5 MDM: 13:21 Patient medically screened. rn 13:31 ED course: Patient states that he and partner found a travel bag in a trash can with rn unknown type or number of pills but each took an unknown number. He is not entirely sure exactly what he took.. 15:51 Differential diagnosis: Ingestion/exposure to Unknown pills. Data reviewed: vital rn signs, nurses notes, lab test result(s), EKG, and as a result, I will discharge patient. Counseling: I had a detailed discussion with the patient and/or guardian regarding the historical points, exam findings, and any diagnostic results supporting the discharge/admit diagnosis, lab results, the need for outpatient follow up, to return to the emergency department if symptoms worsen or persist or if there are any questions or concerns that arise at home. 15:51 Response to treatment: the patient's symptoms have mildly improved after treatment, and rn as a result, I will discharge patient. ED course: Tylenol level normal. Patient was stable vitals. Awake, not somnolent, admits to cocaine usage. Will discharge in care of police lieutenant patrol.. 08/26 13:22 Order name: Acetaminophen; Complete Time: 15:16 rn 08/26 13:22 Order name: Basic Metabolic Panel; Complete Time: 15:16 rn 08/26 13:22 Order name: CBC with Diff; Complete Time: 14:03 rn 08/26 13:22 Order name: ETOH Level; Complete Time: 14:37 rn 08/26 13:22 Order name: Hepatic Function; Complete Time: 15:16 rn 08/26 13:22 Order name: PT-INR; Complete Time: 14:37 rn 08/26 13:22 Order name: Ptt, Activated; Complete Time: 14:37 rn 08/26 13:22 Order name: Salicylate; Complete Time: 14:37 rn 08/26 13:22 Order name: Urinalysis w/ reflexes rn 08/26 13:22 Order name: Urine Drug Screen rn 08/26 13:22 Order name: EKG; Complete Time: 13:22 rn 08/26 13:22 Order name: EKG - Nurse/Tech; Complete Time: 13:48 rn 08/26 13:22 Order name: IV Saline Lock; Complete Time: 13:48 rn 08/26 13:22 Order name: Labs collected and sent; Complete Time: 13:48 rn 08/26 13:22 Order name: Suicide Precautions; Complete Time: 15:55 rn 08/26 13:22 Order name: Suicide Screening ([place]); Complete Time: 15:55 rn EC:59 Rate is 92 beats/min. Rhythm is regular. QRS [facility] is Normal. MA interval is normal. QRS rn interval is normal. QT interval is normal. No Q waves. T waves are Normal. No ST changes noted. Clinical impression: Normal ECG. Interpreted by me. Reviewed by me. Administered Medications: No medications were administered Disposition Summary: 08/27/23 15:53 Discharge Ordered Notes: Location: Home rn Problem: new rn Symptoms: have improved rn Condition: Stable rn Diagnosis - Encounter for possible overdose of unknown substance rn Followup: rn - With: Private Physician - When: As needed - Reason: Recheck today's complaints, Re-evaluation by your physician Discharge Instructions: - Discharge Summary Sheet rn - Intentional Drug Overdose rn Forms: - Medication Reconciliation Form rn - Antibiotic event planning intern - Prescription Opioid Use rn - Patient Portal Instructions rn - Leadership Thank You Letter rn Signatures: Dispatcher [employer] EDMS Agapito Whyte MD MD rn Langhorst, Amanda, RN RN al5 Corrections: (The following items were deleted from the chart) 13:22 13:22 ACETAMINOPHEN+C.LAB.BRZ ordered. EDMS EDMS 13:22 13:22 BASIC METABOLIC PANEL+C.LAB.BRZ ordered. EDMS EDMS 13:22 13:22 CBC+H.LAB.BRZ ordered. EDMS EDMS 13:22 13:22 ETHANOL+C.LAB.BRZ ordered. EDMS EDMS 13:22 13:22 HEPATIC FUNCTION+C.LAB.BRZ ordered. EDMS EDMS 13:22 13:22 PROTIME (+INR)+COAG.LAB.BRZ ordered. EDMS EDMS 13:22 13:22 PTT, ACTIVATED+COAG.LAB.BRZ ordered. EDMS EDMS 13:22 13:22 SALICYLATE+C.LAB.BRZ ordered. EDMS EDMS 13:22 13:22 Urinalysis+U.LAB.BRZ ordered. EDMS EDMS 13:22 13:22 URINE DRUG SCREEN+UC.LAB.BRZ ordered. EDMS EDMS
[2023-08-27 15:59] LABS: Sqamous Epithelial <5 /HPF (None Seen); Urine Bacteria <20 /HPF (<20); Urine Microscopic Reflex YN ORDER UMIC; Urine Mucus 4+ /HPF (None Seen); Urine RBC <5 /HPF (None Seen); Urine WBC <5 /HPF (<5)
[2023-08-27 16:00] LABS: Specific Gravity > 1.030 (1.005-1.030); Urine Bilirubin NEGATIVE (Negative); Urine Blood Negative (Negative); Urine Clarity Clear (Clear); Urine Color Yellow (Yellow); Urine Glucose NEGATIVE (Negative); Urine Ketones NEGATIVE (Negative); Urine Nitrite NEGATIVE (Negative); Urine Protein TRACE (Negative); Urine Urobilinogen Normal (Normal); Urine pH 5.5 (5.0-7.0)
[2023-08-27 16:25] VITALS: BP 127/92; TEMP 97.7; O2SAT 96
[2023-08-27 16:32] LABS: Barbiturates NEGATIVE (NEGATIVE); Benzodiazepines NEGATIVE (NEGATIVE); Cocaine POSITIVE (NEGATIVE); METHAMPHETAM NEGATIVE (NEGATIVE); Methadone NEGATIVE (NEGATIVE); Opiates NEGATIVE (NEGATIVE); Phencyclidine NEGATIVE (NEGATIVE); THC Cannibis NEGATIVE (NEGATIVE)
== END 2023-08-27 16:16 | disposition home or self-care (01) ==
LOC: ER 13:17
DX: T50.991A Poisoning by other drugs, medicaments and biological substances, accidental (unintentional), initial encounter (principal)
CPT/HCPCS: 36415; 80048; 80076; 80143; 80179; 80307; 81001; 82077; 85025; 85610; 85730; 99284